=== PATIENT | male | born 1990 | race American Indian/Alaskan Native ===

== ENCOUNTER 2021-08-30 08:24 | Emergency (ER) | payer SELFPAY ==
[2021-08-30 08:33] VITALS: BP 163/88
--- NOTE | 2021-08-30 08:50 | Emergency Department Report ---
ED Fall HPI - General Chief Complaint: Fall Stated Complaint: SWOLLEN FACE Time Seen by Provider: 08/30/21 08:38 Source: patient Mode of arrival: Ambulatory - History of Present Illness Initial Comments: 31-year-old male who reports no significant past medical history presents to the ER today complaining of facial injury after accidental fall. Patient states that this incident occurred 2 days ago. Patient states that he was walking into his house, when he tripped over a curb and fell. He states that he was drunk at the time. He struck his face on the ground. He denies any LOC but he does have facial abrasions and swelling to his face especially on the right side. He states that he has been icing the area but his concern is that the swelling is not improving. He denies any nosebleeds, headache, dizziness, nausea, vomiting, vision changes or any other additional symptoms. MD Complaint: fall, other (facial injury ) -: days(s) (2) - Related Data Previous Rx's Medication Instructions Recorded Last Taken Type Ibuprofen [Motrin] 600 mg PO Q8H PRN #30 tablet 08/30/21 Unknown Rx Allergies Allergy/AdvReac Type Severity Reaction Status Date / Time No Known Allergies Allergy Unverified 08/30/21 08:31 ED Review of Systems ROS: Stated complaint: SWOLLEN FACE Other details as noted in HPI Comment: All other systems reviewed and negative Constitutional: denies: chills, fever Eyes: denies: eye pain, eye discharge, vision change ENT: other (Right-sided facial pain status post fall). denies: ear pain, throat pain Respiratory: denies: cough, shortness of breath, SOB with exertion, SOB at rest, wheezing Cardiovascular: denies: chest pain, palpitations Gastrointestinal: denies: abdominal pain, nausea, diarrhea, hematochezia Genitourinary: denies: urgency, dysuria Musculoskeletal: denies: back pain, joint swelling, arthralgia Skin: other (Abrasion to face) Neurological: denies: headache, weakness, paresthesias Psychiatric: denies: anxiety, depression, auditory hallucinations, visual hallucinations, homicidal thoughts, suicidal thoughts Hematological/Lymphatic: denies: easy bleeding, easy bruising ED Past Medical Hx - Medications Home Medications: Home Medications Medication Instructions Recorded Confirmed Last Taken Type Ibuprofen [Motrin] 600 mg PO Q8H PRN #30 tablet 08/30/21 Unknown Rx ED Physical Exam - General Limitations: No Limitations General appearance: alert, in no apparent distress - Head Head exam: Present: other (Superficial abrasions noted mainly to the right forehead, and right cheek area with mild swelling noted to the right forehead and right cheek area with tenderness mainly to the wounds. No signs of infection. No crepitus or deformity.) - Eye Eye exam: Present: normal appearance, PERRL, EOMI Pupils: Present: normal accommodation - ENT ENT exam: Present: normal exam, mucous membranes moist, other (No malocclusion or dental injury noted.) - Neck Neck exam: Present: normal inspection, full ROM. Absent: meningismus - Respiratory Respiratory exam: Present: normal lung sounds bilaterally. Absent: respiratory distress, wheezes, rales, rhonchi, stridor - Cardiovascular Cardiovascular Exam: Present: regular rate, normal rhythm, normal heart sounds - Neurological Exam Neurological exam: Present: alert, oriented X3, CN II-XII intact, normal gait - Psychiatric Psychiatric exam: Present: normal affect, normal mood ED Course Vital Signs 08/30/21 08:32 Temperature 98 F Pulse Rate 73 Respiratory 16 Rate Blood Pressure 163/88 [Right] O2 Sat by Pulse 99 Oximetry ED Medical Decision Making - Radiology Data Radiology results: report reviewed - Medical Decision Making 1029: CT face shows no acute abnormality. Patient is awake alert and oriented x3 with a GCS of 15. He is not toxic or ill-appearing. He is neurologically intact with a normal gait. He does have a few abrasions to his face without any apparent signs of secondary bacterial infection. Discussed CT results with patient. Suspect facial contusion. Wound care discussed with patient. Recommend he continue applying ice to help with the swelling and will be given prescription for ibuprofen. Recommend follow-up with primary care doctor. There is no indication for any additional testing through the ER, admission or transfer at this time. Patient expressed understanding for instructions and agree with plan. Patient stable at time of discharge. Critical care attestation.: If time is entered above; I have spent that time in minutes in the direct care of this critically ill patient, excluding procedure time. ED Disposition Clinical Impression: Facial contusion Disposition: HOME / SELF CARE / HOMELESS Is pt being admited?: No Does the pt Need Aspirin: No Condition: Stable Instructions: Facial or Scalp Contusion Additional Instructions: Continue to keep your wounds clean daily with soap and water and apply thin layer of Neosporin after each cleaning. Take the ibuprofen as prescribed to help with any pain or swelling. Continue to apply ice to also help with the swelling. Recommend close follow-up with primary care doctor, if you do not have 1, 1 will be listed on your discharge instructions. Return to the ER if anything changes or worsens. Prescriptions: Ibuprofen [Motrin] 600 mg PO Q8H PRN #30 tablet PRN Reason: Pain Referrals: HELIO HODGSON MD [Staff Physician] - 3-5 Days Time of Disposition: 10:26
--- NOTE | 2021-08-30 10:22 | Cat Scan Report ---
CT MAXILLOFACIAL WITHOUT CONTRAST INDICATION / CLINICAL INFORMATION: Fall/facial injury/swelling. TECHNIQUE: All CT scans at this location are performed using CT dose reduction for ALARA by means of automated e xposure control. COMPARISON: None available. FINDINGS: SOFT TISSUE FACE: Soft tissue tissue swelling is present over the right forehead and in the preseptal region of the right orbit. Soft tissue swelling is also observed in the region of the right medial c anthus and nasion. FACIAL BONES: No fracture or other significant abnormality. PAINTER HELPER SPRAY SPACES:Evaluation of the resident care aide space structures reveal no abnormalities. SALIVARY GLANDS: Parotid and submandibular salivary glands have an unremarkable appearance. PARANASAL SINUSES: Mild mucosal thickening is present within anterior ethmoid air cells bilaterally. NASAL CAVITY: Paradoxical curvature of the middle turbinates is noted. Decrease in the air passageway s of the OM U is observed on the left secondary to contact between the middle turbinate and uncinate process and due to mucosal thickening along the nasomaxillary ducts and infundibulum. ORBITS: Globes, optic nerves and extraocular muscles have an unremarkable appearance. TEMPORAL BONES:Visualized mastoid air cells and the middle ear cavities are normally pneumatized. VISUALIZED INTRACRANIAL STRUCTURES: No significant abnormality. IMPRESSION: 1. No indication of facial fracture. Signer Name: Abraham Woodall MD Signed: 08/30/2021 10:18 AM Workstation Name: [id number]
== END 2021-08-30 10:32 | disposition home or self-care (01) ==
LOC: ED 08:24
DX: S00.83XA Contusion of other part of head, initial encounter (principal); W01.0XXA Fall on same level from slipping, tripping and stumbling without subsequent striking against object, initial encounter; Y93.01 Activity, walking, marching and hiking; Y92.89 Other specified places as the place of occurrence of the external cause; Y99.8 Other external cause status
CPT/HCPCS: 70486; 99283